=== PATIENT | male | born 1985 | race Caucasian/White ===

== ENCOUNTER 2016-12-19 03:53 | Emergency (ER) | payer OTHER ==
[~2016-12-19] VITALS: Ht 185.4 cm; Wt 109.3 kg
[~2016-12-19 03:53] MED LIST: HYDR-971 PO; IBUP800T19 PO; OMEP20CA9 PO
--- NOTE | 2016-12-19 04:12 | ED.ADGEN ---
Past History Past Medical History: Other Past Surgical History: Other Smoking: Non-smoker Alcohol Use: Occasionally Drug Use: None Adult General HPI HPI Patient is a 31-year-old man, history of lumbar back pain, status post injury, status post laminectomy several years ago, with placement of a spinal stimulator 5 days ago, who presents to the emergency department with complaint of mid back pain. No radiation to the lower extremities, upper extremities or chest. Patient states that the spinal stimulator is working well in controlling his initial symptoms in his lower back, however throughout the day today he began experiencing increasing tightness in his upper back, to the point where he is now having difficulty sitting down due to pain. No chest pain or shortness of breath. He denies any weakness, any numbness or tingling, any difficulty with bowel or bladder control, any headache, any fevers or chills, any nausea or vomiting. He states he has been taking tizanidine and Percocet as directed without relief. He states he did try to contact his surgeon, has been unable to reach anyone through the office number. He denies any new injuries, or other complaints. Patient is standing and ambulating without issue in the ED , stating that his pain is primarily when he seated. Review of Systems Review of Systems Constitutional: Denies fever or chills [] Eyes: Denies change in visual acuity, redness, or eye pain [] HENT: Denies nasal congestion or sore throat [] Respiratory: Denies cough or shortness of breath [] Cardiovascular: No additional information not addressed in HPI [] GI: Denies abdominal pain, nausea, vomiting, bloody stools or diarrhea [] : Denies dysuria or hematuria [] Musculoskeletal: Mid thoracic back pain, no joint pain. Described as a tight feeling. Worsened by sitting down. Integument: Denies rash or skin lesions [] Neurologic: Denies headache, focal weakness or sensory changes [] Endocrine: Denies polyuria or polydipsia [] Current Medications Current Medications Current Medications Medications (Trade) Dose Ordered Sig/Reed Start Time Stop Time Status Last Admin Dose Admin Dexamethasone Sodium Phosphate (Decadron) 10 mg 1X ONCE 12/19/16 05:15 12/19/16 05:26 DC 12/19/16 05:15 10 MG Diazepam (Valium) 10 mg 1X ONCE 12/19/16 04:15 12/19/16 04:55 DC 12/19/16 04:15 10 MG Allergies Allergies Allergies Coded Allergies Type Severity Reaction Last Updated Verified No Known Drug Allergies 08/31/14 No Physical Exam Physical Exam Constitutional: Well developed, well nourished, no acute distress, non-toxic appearance. [] HENT: Normocephalic, atraumatic, bilateral external ears normal, oropharynx moist, no oral exudates, nose normal. [] Eyes: PERRLA, EOMI, conjunctiva normal, no discharge. [] Neck: Normal range of motion, no tenderness, supple, no stridor. [] Cardiovascular:Heart rate regular rhythm, no murmur, S1, S2, no rubs or gallops. [] Lungs & Thorax: Bilateral breath sounds clear to auscultation, no wheezing, rhonchi, rales. No chest wall crepitus or tenderness. [] Abdomen: Bowel sounds normal, soft, no tenderness, no rebound, rigidity, no guarding, no masses, no pulsatile masses. [] Skin: Warm, dry, no erythema, no rash. [] Back: Patient with a 6 cm centimeter surgical incision in the mid lumbar region , right side, lateral to the paraspinal muscles, with edward in place. Incision site is clean dry and intact. Patient points to lower thoracic region a site of pain, extending across the midline of the back, but primarily in the paraspinal muscles, which are tender to palpation, reproducing pain, with tissue tension noted. Aside from incision site, no other external signs of trauma, no dehiscence, no evidence of lesions, abscess formation, induration. No CVA tenderness. [] Extremities: No tenderness, no cyanosis, no clubbing, ROM intact, no edema. [] Neurologic: Alert and oriented X 3, normal motor function, normal sensory function, no focal deficits noted. [] Psychologic: Affect normal, judgement normal, mood normal. [] Current Patient Data Vital Signs Vital Signs Date Time Temp Pulse Resp B/P (MAP) Pulse Ox O2 Delivery O2 Flow Rate FiO2 12/19/16 05:20 80 18 135/89 (104) 95 Room Air 12/19/16 04:00 97.8 EKG EKG Not indicated. [] Radiology/Procedures Radiology/Procedures Not indicated. [] Course & Med Decision Making Course & Med Decision Making Pertinent Labs and Imaging studies reviewed. (See chart for details) Patient with a normal neurologic examination, is ambulating without difficulty in the emergency department, normal voiding, denies any radicular pain, states that his radicular symptoms and chronic lower back pain well-controlled the spinal similar. Pain is consistent with the area of tissue tension and muscle spasm located in the lower thoracic region of the back. Patient received IM Valium in the emergency department, on reevaluation he is able to sit at this time, states he still expressing pain, is feeling more tired. Patient's urinalysis was unremarkable, examination are reveal any evidence of concerning findings for infection. Examination is consistent with postsurgical pain. I did speak with Dr. Daniels, the patient's surgeon, did discuss patient's examination and presentation today in the emergency department. He agrees that this presentation is consistent with postsurgical pain, he recommends giving the patient a dose of steroid in the emergency department, and discharging the patient with a Medrol Dosepak, also to switch the patient from tizanidine to Valium. I did discuss this with patient, he was agreeable with the plan to use steroid treatment for inflammation, on top of switching to Valium. He does have Percocet with him in the ED, continue use as directed by Dr. Daniels, opened is switching to Valium, and using a Medrol Dosepak was given precautions regarding medication interactions and sedation. Patient was given a dose of Decadron orally in the emergency department. He tolerated without issue. He has taken steroids previously for similar symptoms. Patient currently has an appointment to follow up in the , but will contact Dr. Daniels if he has any additional questions or concerns, to return to the ED for additional evaluation if any new , worsening or concerning symptoms as discussed develop. Patient discharged home in stable condition with his , with plan and precautions as above. Final Impression Final Impression [] Problems: Dragon Disclaimer Dragon Disclaimer This electronic medical record was generated, in whole or in part, using a voice recognition dictation system. Departure: Impression: Primary Impression: Postoperative back pain Disposition: HOME, SELF-CARE Condition: IMPROVED Scripts Diazepam (VALIUM) 10 Mg Tablet 10 MG PO PRN TID Y for MUSCLE PAIN, #15 TAB Prov: ARNOLDO HOLLAND DO 12/19/16 Methylprednisolone (METHYLPREDNISOLONE) 4 Mg Tab.ds.pk 4 MG PO UD for MUSCLE PAIN, #21 TAB Prov: ARNOLDO HOLLAND DO 12/19/16 ARNOLDO HOLLAND DO Dec 19, 2016 04:12
[2016-12-19] MEDS ORDERED: DEXAMETHASONE SOD PHOS 10 MG/ML VIAL PO ONE (05:15)
[2016-12-19] MEDS ORDERED: DIAZ10TA PO (05:17)
[2016-12-19] MEDS ORDERED: METH4TAB6 PO (05:17)
[2016-12-19 05:20] VITALS: BP 135/89
[2016-12-19 07:42] LABS: BILIRUBIN,URINE NEG (NEG); CLARITY,URINE CLEAR; COLOR,URINE YELLOW; GLUCOSE,URINE NEG (NEG); NITRITE,URINE NEG (NEG); UROBILINOGEN,URINE 0.2 mg/dL (0.2 mg/dL)
== END 2016-12-19 05:25 | disposition home or self-care (01) ==
LOC: ER 03:53
DX: G89.18 Other acute postprocedural pain (principal); M54.89 Other dorsalgia; G89.29 Other chronic pain
CPT/HCPCS: 81003; 96372; 99283; J1100

== ENCOUNTER 2017-03-18 10:31 | Emergency (ER) | payer OTHER ==
[~2017-03-18] VITALS: Ht 185.4 cm; Wt 109.5 kg
[~2017-03-18 10:31] MED LIST changes: +DIAZ10TA PO; +METH4TAB6 PO
--- NOTE | 2017-03-18 10:48 | PHYS DOC ---
Past History Past Medical History: No Pertinent History Past Surgical History: Other Smoking: Non-smoker Alcohol Use: Rarely Drug Use: Opiates Adult General Chief Complaint Chief Complaint: LACERATION/AVULSION HPI HPI Patient is a 31 year old male who presents with complaint of laceration to the left thumb. Patient suffered injury shortly prior to arrival. Patient states that he accidentally cut his thumb with a knife while fishing. Laceration goes into the tip of the thumb towards the edge of the medial nail bed. Patient denies any other injuries. Patient is up-to-date on tetanus immunization. Patient denies loss of function of the thumb. Review of Systems Review of Systems Constitutional: Denies fever or chills [] Eyes: Denies change in visual acuity, redness, or eye pain [] HENT: Denies nasal congestion or sore throat [] Musculoskeletal: Laceration to left thumb[] Integument: Denies rash or skin lesions [] Neurologic: Denies headache, focal weakness or sensory changes [] Allergies Allergies Allergies Coded Allergies Type Severity Reaction Last Updated Verified No Known Drug Allergies 08/31/14 No Physical Exam Physical Exam Constitutional: Well developed, well nourished, no acute distress, non-toxic appearance. [] HENT: Normocephalic, atraumatic, bilateral external ears normal, oropharynx moist, no oral exudates, nose normal. [] Skin: Warm, dry, no erythema, no rash. [] Extremities: 2 cm longitudinal laceration over distal left thumb tip extending towards edge of the medial left thumbnail, no cyanosis, no clubbing, ROM intact , no edema. [] Neurologic: Alert and oriented X 3, normal motor function, normal sensory function, no focal deficits noted. [] Current Patient Data Vital Signs Vital Signs Date Time Temp Pulse Resp B/P (MAP) Pulse Ox O2 Delivery O2 Flow Rate FiO2 03/18/17 10:40 97.9 91 20 98 Room Air Lab Results None performed EKG EKG Not performed[] Radiology/Procedures Radiology/Procedures Not performed[] Course & Med Decision Making Course & Med Decision Making Pertinent Labs and Imaging studies reviewed. (See chart for details) The patient had his laceration repaired as outlined in the procedure note. Patient was advised follow-up in 7-10 days with his primary physician for reevaluation of his wound. Advised return emergency department for any worsening symptoms. Patient was understanding and in agreement with treatment plan. Dragon Disclaimer Dragon Disclaimer This chart was dictated in whole or in part using Voice Recognition software in a busy, high-work load, and often noisy Emergency Department environment. It may contain unintended and wholly unrecognized errors or omissions. Laceration Repair Lac Repair Indication: Left thumb laceration Procedure: The patient was placed in the appropriate position. The area was then soaked in chlorhexidine soap solution and copiously irrigated with tap water for 5 minutes. The laceration was closed using Skin affix tissue adhesive and Steri-Strips. Total repaired wound length: 2.5 cm. The patient tolerated the procedure without difficulty. Complications: None. Departure Departure: Impression: Primary Impression: Laceration of left thumb Disposition: 01 HOME, SELF-CARE Condition: IMPROVED Referrals: ANDIE TADEO DO (PCP) Patient Instructions: Fingertip Laceration Additional Instructions: Follow-up to primary doctor in 7-10 days for reevaluation. Return to emergency department for any worsening symptoms. Scripts Cephalexin (KEFLEX) 500 Mg Capsule 1 CAP PO TID, #15 CAP Prov: CEE RESENDIZ MD 03/18/17 Problem Qualifiers Primary Impression: Laceration of left thumb Encounter type: initial encounter Damage to nail status: without damage Foreign body presence: without foreign body Qualified Codes: S61.012A - Laceration without foreign body of left thumb without damage to nail, initial encounter CEE RESENDIZ MD Mar 18, 2017 10:48
[2017-03-18] MEDS ORDERED: CEPH-264 PO (11:39)
[2017-03-18 11:48] VITALS: BP 121/61
== END 2017-03-18 11:45 | disposition home or self-care (01) ==
LOC: ER 10:31
DX: S61.012A Laceration without foreign body of left thumb without damage to nail, initial encounter (principal); W26.0XXA Contact with knife, initial encounter; Y93.89 Activity, other specified; Y99.8 Other external cause status; Y92.89 Other specified places as the place of occurrence of the external cause
CPT/HCPCS: 12001; 99283-25